=== PATIENT | male | born 1925 | race Caucasian/White ===

== ENCOUNTER → 2016-08-05 | Outpatient (CLI) | payer OTHER ==
[~2016-08-05] MED LIST: ADULT LOW DOSE81 MG PO; ASPIRIN325 PO; BACTROBAN CREAM30 G1 TOP; CRANBERRY400 MG PO; CRESTOR10 MG PO; ENABLEX15 MG PO; FERREX 150150 MG PO; FISH OIL 1,0001 EAC5 PO; FUROSEMIDE 20 M20 M1 PO; GLUCOPHAGE1000 MG PO; GLUCOTROL10 MG PO; HYTRIN 5 M5 MG/1 CA1 PO; HYZAAR 100-251 EACH PO; KEFLEX500 MG PO; MIDRIN CAPSULE1 CAP PO; MULTIPLE VITAM1 EAC3 PO; MULTIVITAMINS PO; NIASPAN 500 MG500 M1 PO; PACERONE 200 M200 M1 PO; POTASSIUM20 PO; PYRIDIUM200 MG OR; TOPROL XL25 MG PO; TOPROL XL50 MG PO; VESICARE 5 MG TA5 MG PO; VICODIN PO
== END ==
LOC: RAD 12:55
DX: E04.1 Nontoxic single thyroid nodule (principal)

== ENCOUNTER → 2016-08-14 | Outpatient (CLI) | payer OTHER ==
--- NOTE | ~2016-08-14 | S ---
[facility] [place] [address] SURGICAL PATH RPT PROCEDURE Name: ANDREA BASS Room #: REG CLCheri M.Ankur.#: [id number] Admission: 08/14/16 Date of : [birth year] Discharge: Report #: [id number] Path Case #: [id number] PATHOLOGY REPORT COLLECTION DATE: 08/14/2016 RECEIVED DATE: 08/14/2016 SUBMITTING PHYS: Dr. Leon Pugh OTHER PHYS: Dr. Delgado Rosado SPECIMEN(S) RECEIVED: A.Rt side inferior neck * * * * * * * * * * * * FINAL DIAGNOSIS: "Right side inferior neck", core needle biopsy: - Follicular neoplasm. (please see comment) COMMENT: Sections show thyroid parenchyma in which a focal area contains a collection of closely small follicles. Nuclear and architectural features of papillary carcinoma are not seen. No significant staining is seen in this area with the HBME-1 stain and only patchy staining is seen with the CK-19 stain. The differential diagnosis in this case includes a follicular adenoma and follicular carcinoma. 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 (VINCENT:brandon; d/t: 08/17/2016) PATHOLOGIST: Sebastian Webb M.D. REPORT ELECTRONICALLY SIGNED BY: Sebastian Webb M.D. DATE/TIME: 08/18/2016 12:04 * * * * * * * * * * * * GROSS PATHOLOGY: The specimen is received in formalin labeled "Andrea [facility], right side inferior," and additionally labeled on the requisition as, "neck". Received are two distinct needle cores of pichardo soft tissue ranging from 0.8 to 0.9 cm in length, which are submitted entirely in cassette A1. (CAA; 08/15/2016) CLINICAL HISTORY: None provided INITIAL CPT CODE(S): [facility] [place] [address] SURGICAL PATH RPT PROCEDURE Name: ANDREA BASS Room #: REG ANU Penn#: [id number] Admission: 08/14/16 Date of : [birth year] Discharge: Report #: [id number] Path Case #: [id number]; [id number], [id number] Professional services performed by [facility] at [address], [place] [address] Technical services performed by [facility] at [address] [place] [address], [facility] [place] [address] [address]. [facility] [address] [place] [address] PHONE: [phone] DIRECTOR: John Bennett M.D. * * * END OF REPORT * * *
--- NOTE | ~2016-08-14 | CNG ---
[facility] [place] [address] CYTO-NONGYN REPORT PROCEDURE Name: ANDREA DURBIN Room #: REG ANU Iyer.Ankur.#: [id number] Admission: 08/14/16 Date of : [birth year] Discharge: Report #: [id number] Path Case #: [id number] CYTOPATHOLOGY REPORT COLLECTION DATE: 08/14/2016 RECEIVED DATE: 08/17/2016 SUBMITTING PHYS: Dr. Leon Pugh OTHER PHYS: Dr. Delgado Rosado CLINICAL HISTORY: Right inferior thyroid. See also [id number]. SPECIMEN(S) RECEIVED: A.Fine needle aspiration, Right inferior thyroid * * * * * * * * * * * * FINAL DIAGNOSIS: A. Right inferior thyroid nodule, Fine needle aspiration: BETHESDA CATEGORY II. SPECIMEN CONSISTS OF FOLLICULAR CELLS IN MACROFOLLICLES, RARE HEMOSIDERIN-LADEN MACROPHAGES, SCANT COLLOID AND BLOOD, FAVOR AN ADENOMATOID NODULE. COMMENT: Nuclear features of papillary thyroid carcinoma are not identified. The concurrent needle core biopsy report ([id number]) showed a follicular lesion with microfollicles. Please refer to a separate report. It is likely sample may not be entirely automobile rental representative; correlate clinically and follow-up as indicated. (IUV; 08/18/16) PATHOLOGIST: Yolanda Wright M.D. REPORT ELECTRONICALLY SIGNED BY: Yolanda Wright M.D. DATE/TIME: 08/18/2016 11:51 * * * * * * * * * * * * GROSS PATHOLOGY: A. Fine needle aspiration, Right inferior thyroid: The specimen is labeled "Andrea Durbin" and consists of two fixed slides, two air dried slides. Twenty mL of clear colorless fluid in fixative from the needle rinse is also submitted and one ThinPrep slide and a cell block were prepared from this material. (clt 08.17.2016) Also received is the RNARetain vial which will be held for molecular studies if needed. CONTENT ARCHITECT(S): BAILEE Simpson([facility]) INITIAL CPT CODE(S): A; [address], [id number] [address] CYTO-NONGYN REPORT PROCEDURE Name: ANDREA DURBIN Room #: REG ANU Head.#: [id number] Admission: 08/14/16 Date of : [birth year] Discharge: Report #: [id number] Path Case #: [id number] Professional services performed by [facility] [address], [place] [address] [facility] at [address] [place] [address]., [address], [place] [address]. [address], [facility] [address] [place] [address] PHONE: [phone] DIRECTOR: John Bennett M.D. * * * END OF REPORT * * *
== END | disposition home or self-care (01) ==
LOC: RAD 08:57
DX: D34 Benign neoplasm of thyroid gland (principal)